=== PATIENT | female | born 1975 | race Caucasian/White ===

== ENCOUNTER 2025-01-25 15:28 | Emergency (ER) | payer BC, SELFPAY ==
[2025-01-25 15:46] VITALS: BP 150/102; PULSE 103; RESP 18; TEMP 36.6; O2SAT 98
[2025-01-25 15:52] LABS: EDSTREPNEGPOS1 Negative (Negative)
--- NOTE | 2025-01-25 15:53 | ED_ITS ---
HPI - URI/Sore Throat General Chief Complaint: Upper Respiratory Infection Stated Complaint: Bilateral Ear Pain / Sore Throat / congection Time Seen by Provider: 01/25/25 15:50 Source: patient Mode of arrival: ambulatory Limitations: no limitations History of Present Illness HPI Narrative: Payton is a 49-year-old female patient presenting to the clinic today with complaints of bilateral ear pain, sore throat, nasal congestion, and cough x 3 days. She denies any known fevers, chills, body aches. States that friend sick friend came over and she was exposed. Denies any chest pain or shortness of breath. Related Data Home Medications ?Medication ?Instructions ?Recorded ?Confirmed ?Last Taken ?Type duloxetine 60 mg capsule,delayed mg PO 01/25/25 Unkno wn History release ergocalciferol (vitamin D2) 1,250 01/25/25 Unknown H istory mcg (50,000 unit) capsule famotidine 20 mg tablet mg 01/25/25 Unknown History fluticasone propionate 50 intranasal 01/25/25 Unknown History mcg/actuation nasal spray,suspension leflunomide 20 mg tablet mg 01/25/25 Unknown History lifitegrast 5 % eye drops in a drp 01/25/25 Unknown H istory dropperette (Xiidra) metoprolol succinate 50 mg mg PO 01/25/25 Unknown His tory tablet,extended release 24 hr nitrofurantoin 01/25/25 Unknown History monohydrate/macrocrystals 100 mg capsule Review of Systems Review of Systems: Pertinent positives per HPI. Patient denies any fever, chills, rash, headache, visual changes, dizziness, shortness of breath, chest pain, palpitations, nausea, vomiting, diarrhea, constipation, abdominal pain, or any urinary issues. REPLACED BY [facility] Comments At the time of my signature, I reviewed and agree with the nursing past medical, surgical, social, and family history. There is no relevant family history pertinent to the patient complaint. Exam Narrative: General: Well-developed, morbidly obese, in no apparent distress Head: Normocephalic, atraumatic Eyes: Pupils equally round and reactive to light bilaterally, EOM intact, sclera and conjunctive clear, no discharge, lids normal Ears: TMs intact and congested, ear canals clear, no drainage, grossly hearing normal. Nose: Nares patent, clear nasal discharge, no inflammation, no sinus tenderness. Mouth: Oral pharynx red without lesions or masses, good dentition, MMM. Postnasal drip Neck: Supple, trachea midline, no enlargement of anterior or posterior cervical nodes, no thyroid masses or goiter palpable. Cardio: Regular rate and rhythm, s1 and s2 normal, no murmur appreciated. Resp: Clear to auscultation bilaterally, no rhonchi, rales, wheezing or rubs Course Course Emergency Course: Portions of this record may have been created with voice recognition software. Level of Care: Express Care Visit Vital Signs Vital signs: Vital Signs Temperature 36.6 C 01/25/25 15:46 Pulse Rate 103 H 01/25/25 15:46 Respiratory Rate 18 01/25/25 15:46 Blood Pressure 150/102 H 01/25/25 15:46 Pulse Oximetry 98 01/25/25 15:46 Oxygen Delivery Room Air 01/25/25 15:46 Temperature 36.6 C 01/25/25 15:46 Pulse Rate 103 H 01/25/25 15:46 Respiratory Rate 18 01/25/25 15:46 Blood Pressure 150/102 H 01/25/25 15:46 Pulse Oximetry 98 01/25/25 15:46 Oxygen Delivery Room Air 01/25/25 15:46 Vital signs reviewed MDM - URI/Sore Throat MDM Narrative Medical decision making narrative: At the time of visit patient is resting comfortably on the exam table. Patient appears to be nontoxic. Complaints of bilateral ear pain, sore throat, nasal congestion, and cough x 3 days. She denies any known fevers, chills, body aches. States that friend sick friend came over and she was exposed. Denies any chest pain or shortness of breath. COVID, influenza, and strep test were ordered. On exam patient has clear nasal discharge, postnasal drip, and bilateral ear congestion. COVID, influenza, and strep test were ordered. Labs: COVID, influenza, and strep test were negative in the clinic today. We will send strep for culture Plan: I suspect patient has URI/pharyngitis/viral syndrome. Recommend taking Coricidin HBP for cold/flu symptoms Supportive measures were discussed with the patient and they voiced understanding discharge instructions and agrees to treatment plan. Return precautions reviewed Differential Diagnosis Differential diagnosis: Likely upper respiratory infection, otitis media, sinusitis, viral infection, bronchitis, influenza, pharyngitis and other (:) Lab Data Labs: Lab Results 01/25/25 01/25/25 Range/Units 15:51 16:00 POC Influenza A Ag Negative (Negative) POC Influenza B Ag Negative (Negative) POC SARS CoV-2 Ag Negative (Negative) POC Grp A Strep Screen Negative (Negative) Discharge Plan Discharge Clinical Impression: Viral infection Upper respiratory infection Qualifiers: URI type: unspecified URI Qualified Code(s): J06.9 - Acute upper respiratory infection, unspecified Pharyngitis Qualifiers: Pharyngitis/tonsillitis etiology: unspecified etiology Qualified Code(s): J02.9 - Acute pharyngitis, unspecified Patient Disposition: Home Condition: Stable Instructions: Antibiotic Form, Pharyngitis (ED), Viral Syndrome (ED), Cold Symptoms (ED) Additional Instructions: COVID, influenza, and strep test were negative in the clinic today. We will send strep for culture if this comes back positive we will contact you in place you on antibiotics at that time. May take Coricidin HBP for cold/flu symptoms Increase fluids and stay well hydrated May take Tylenol or motrin as directed on bottle for pain/fever May use Flonase 1 spray in each nare daily May take OTC antihistamines such as Zyrtec or Claritin daily as directed on bottle May apply Vicks vapor rub to chest to open sinuses Sinus rinses for congestion Cepacol spray, cough drops, throat lozenges, warm tea with honey/lemon, gargle salt water to soothe throat BRAT diet for diarrhea Clear liquids x 24 hours then advance as tolerated for nausea/vomiting Go to the ED if you develop a worsening in your condition- high fever not controlled by Tylenol or Motrin, dehydration, weakness, lethargy, shortness of breath, or chest pain. Follow up with your PCP in 3-5 days if symptoms persist. Patient Language: Nigerian Prescriptions: No Action metoprolol succinate 50 mg tablet extended release 24 hr PO leflunomide 20 mg tablet famotidine 20 mg tablet ergocalciferol (vitamin D2) 1,250 mcg (50,000 unit) capsule fluticasone propionate 50 mcg/actuation spray,suspension INTRANASAL nitrofurantoin monohyd/m-cryst 100 mg capsule duloxetine 60 mg capsule,delayed release(DR/EC) PO Xiidra 5 % dropperette Follow-up/Referrals: Earle,Daisy Greenwood MD [Primary Care Provider, Unknown] Time of Disposition: 16:10 Quality NIHSS Nursing Documentation ED NIHSS nursing documentation: reviewed/agree
[2025-01-25 16:02] LABS: EDCOVIDSCREEN Negative (Negative); EDINFLUASCREEN Negative (Negative); EDINFLUBSCREEN Negative (Negative)
== END 2025-01-25 16:08 | disposition home or self-care (01) ==
PROVIDERS: Emergency Provider Nurse Practitioner Family; PCP Family Medicine
DX: B34.9 Viral infection, unspecified (principal); J06.9 Acute upper respiratory infection, unspecified; J02.9 Acute pharyngitis, unspecified; Z20.822 Contact with and (suspected) exposure to COVID-19
CPT/HCPCS: 87081; 87426; 87804; 87880; 99203; G0463